=== PATIENT | male | born 1980 | race Caucasian/White ===

== ENCOUNTER 2017-12-01 05:38 | Emergency (ER) | payer SELFPAY ==
[2017-12-01] MEDS ORDERED: IPRATROPIUM/ALBUTEROL 0.5-2.5 MG/3 ML AMPUL NEB ONE ×2 (05:42→05:47)
[2017-12-01] MEDS ORDERED: PREDNISONE 20 MG TABLET PO ONE (05:47)
--- NOTE | 2017-12-01 05:51 | ER Document Report ---
ED Medical Screen (RME) - General Chief Complaint: Asthma Exacerbation Stated Complaint: TROUBLE BREATHING Time Seen by Provider: 12/01/17 05:47 Notes: 37-year-old male with a history of asthma, ran out of his asthma inhalers and nebulizer, report shortness of breath that started at 1 PM tonight. Occasional cough, no fever. Denies smoking. Using mist at home for self treatment. TRAVEL OUTSIDE OF THE [place] IN LAST 30 DAYS: No Physical Exam - Vital signs Vitals: Temp Pulse Resp BP Pulse Ox 98.0 F 111 H 24 H 133/91 H 94 12/01/17 05:42 12/01/17 05:42 12/01/17 05:42 12/01/17 05:42 12/01/17 05:42 - Respiratory Respiratory status: Tachypnea Breath sounds: Wheezing - Soft expiratory wheezes in the left lower lobe, otherwise clear lungs sounds bilaterally - Psychological Associated symptoms: Anxious Course - Re-evaluation Re-evalutation: Good air movement with very mild wheezing, patient is anxious, treating exacerbation - Vital Signs Vital signs: Temp Pulse Resp BP Pulse Ox 98.0 F 111 H 24 H 133/91 H 94 12/01/17 05:42 12/01/17 05:42 12/01/17 05:42 12/01/17 05:42 12/01/17 05:42
--- NOTE | 2017-12-01 06:14 | RADIOLOGY REPORT (SQ) ---
EXAM DESCRIPTION: CHEST SINGLE VIEW CLINICAL HISTORY: shortness of breath COMPARISON: None. FINDINGS: Single frontal view of the chest. The cardiomediastinal silhouette has normal size and contour. No consolidation, pneumothorax, or pleural effusion. No displaced rib fractures identified. Leads overlie the chest. Upper abdominal soft tissues are unremarkable. IMPRESSION: 1. No acute pulmonary process identified.
[2017-12-01 06:21] VITALS: BP 123/69
[2017-12-01] MEDS ORDERED: ALBUTEROL SULFATE HFA (90 MCG/PUFF) 8 GM MDI (1 MDI/ER DISP) IH PRN (06:47)
--- NOTE | 2017-12-01 06:47 | ER Document Report ---
ED General - General Chief Complaint: Asthma Exacerbation Stated Complaint: TROUBLE BREATHING Time Seen by Provider: 12/01/17 05:47 Mode of Arrival: Ambulatory Information source: Patient Notes: 37-year-old male history of hiatal hernia gastric reflux asthma presents with complaints of a cough worse at nighttime. Patient notes it feels like a tickle sensation in his throat and that the symptoms have been ongoing now for months. Patient notes intermittently he will have wheezing with it denies any DVT or PE risk at TRAVEL OUTSIDE OF THE [place] IN LAST 30 DAYS: No - HPI Onset: Other Onset/Duration: Sudden, Intermittent Quality of pain: No pain Severity: Mild Pain Level: Denies Associated symptoms: Shortness of breath Exacerbated by: Other - laying flat Relieved by: Other - calming himself down and breathing treatments Similar symptoms previously: Yes Recently seen / treated by doctor: No - Related Data Allergies/Adverse Reactions: No Known Allergies Allergy (Unverified 12/01/17 06:13) Past Medical History - Social History Smoking Status: Never Smoker Cigarette use (# per day): No Chew tobacco use (# tins/day): No Smoking Education Provided: No Frequency of alcohol use: None Drug Abuse: None Family History: Reviewed & Not Pertinent Patient has suicidal ideation: No Patient has homicidal ideation: No Pulmonary Medical History: Reports: Hx Asthma Renal/ Medical History: Denies: Hx Peritoneal Dialysis GI Medical History: Reports: Hx Gastroesophageal Reflux Disease Review of Systems - Review of Systems Notes: REVIEW OF SYSTEMS: CONSTITUTIONAL : Denies fever, chills, or sweats. Denies recent illness. EENT: Denies eye, ear, throat, or mouth pain or symptoms. Denies nasal or sinus congestion or discharge. Denies throat, tongue, or mouth swelling or difficulty swallowing. CARDIOVASCULAR: Denies chest pain. Denies palpitations or racing or irregular heart beat. Denies ankle edema. RESPIRATORY: Admits shortness of breath GASTROINTESTINAL: Admits to gastric reflux GENITOURINARY: Denies difficulty urinating, painful urination, burning, frequency, blood in urine, or discharge. MUSCULOSKELETAL: Denies back or neck pain or stiffness. Denies joint pain or swelling. SKIN: Denies rash, lesions or sores. HEMATOLOGIC : Denies easy bruising or bleeding. LYMPHATIC: Denies swollen, enlarged glands. NEUROLOGICAL: Denies confusion or altered mental status. Denies passing out or loss of consciousness. Denies dizziness or lightheadedness. Denies headache. Denies weakness or paralysis or loss of use of either side. Denies problems with gait or speech. Denies sensory loss, numbness, or tingling. Denies seizures. PSYCHIATRIC: Denies anxiety or stress. Denies depression, suicidal ideation, or homicidal ideation. ALL OTHER SYSTEMS REVIEWED AND NEGATIVE. Dictation was performed using [email or web address] voice recognition software PHYSICAL EXAMINATION: GENERAL: Well-appearing, well-nourished and in no acute distress. HEAD: Atraumatic, normocephalic. EYES: Pupils equal round and reactive to light, extraocular movements intact, sclera anicteric, conjunctiva are normal. ENT: Nares patent, oropharynx clear without exudates. Moist mucous membranes. NECK: Normal range of motion, supple without lymphadenopathy LUNGS: Breath sounds clear to auscultation bilaterally and equal. No wheezes rales or rhonchi. Patient was noted to have wheezing prior to breathing treatments and my evaluation HEART: Regular rate and rhythm without murmurs ABDOMEN: Soft, nontender, nondistended abdomen. No guarding, no rebound. No masses appreciated. Musculoskeletal: Normal range of motion, no pitting or edema. No cyanosis. NEUROLOGICAL: Cranial nerves grossly intact. Normal speech, normal gait. Normal sensory, motor exams PSYCH: Normal mood, normal affect. SKIN: Warm, Dry, normal turgor, no rashes or lesions noted. Physical Exam - Vital signs Vitals: Temp Pulse Resp BP Pulse Ox 98.0 F 111 H 24 H 133/91 H 94 12/01/17 05:42 12/01/17 05:42 12/01/17 05:42 12/01/17 05:42 12/01/17 05:42 Course - Re-evaluation Re-evalutation: 12/01/17 09:40 Patient's examination is quite benign, he was noted to be slightly tachycardic tachypneic prior to my evaluation but those symptoms seem to improve when he talked to him. His symptoms he states resolved with breathing treatment. Patient overall looks well is in no distress on reexamination, x-ray noted no acute abnormality, patient is already on gastric reflux medication will be given GI follow-up and surgeon for his hiatal hernia which I believe may be causing all his symptoms since they worsen when he lays flat After performing a Medical Screening Examination, I estimate there is LOW risk for ACUTE CORONARY SYNDROME, PULMONARY EMBOLI, RESPIRATORY FAILURE, SEPSIS OR MENINGITIS, thus I consider the discharge disposition reasonable. I have reevaluated this patient multiple times and no significant life threatening changes are noted. The patient and I have discussed the diagnosis and risks, and we agree with discharging home with close follow-up. We also discussed returning to the Emergency Department immediately if new or worsening symptoms occur. We have discussed the symptoms which are most concerning (e.g., changing or worsening pain, trouble swallowing or breathing, neck stiffness, fever) that necessitate immediate return. - Vital Signs Vital signs: Temp Pulse Resp BP Pulse Ox 98.0 F 111 H 15 123/69 97 12/01/17 05:42 12/01/17 05:42 12/01/17 06:01 12/01/17 06:01 12/01/17 06:01 - Diagnostic Test Radiology reviewed: Image reviewed - no acute abnormality , report given to patient, Reports reviewed Discharge - Discharge Clinical Impression: GERD (gastroesophageal reflux disease) Qualifiers: Esophagitis presence: with esophagitis Qualified Code(s): K21.0 - Gastro- esophageal reflux disease with esophagitis Asthma exacerbation Qualifiers: Asthma severity: mild Asthma persistence: intermittent Qualified Code(s): J45.21 - Mild intermittent asthma with (acute) exacerbation Condition: Stable Disposition: HOME, SELF-CARE Instructions: Asthma ([facility]) Prescriptions: Albuterol Sulfate [Albuterol Sulfate 2.5mg/3 mL] 1 vial IH Q4 PRN 30 Days vial PRN Reason: Referrals: JUANJO PERALTA MD [ACTIVE STAFF] - Follow up tomorrow DEYSI MINOR MD [ACTIVE STAFF] - Follow up tomorrow
== END 2017-12-01 06:53 | disposition home or self-care (01) ==
LOC: ER 05:38
DX: K21.0 Gastro-esophageal reflux disease with esophagitis (principal); J45.21 Mild intermittent asthma with (acute) exacerbation; R05 Cough; R06.02 Shortness of breath; R00.0 Tachycardia, unspecified
CPT/HCPCS: 94640; 99285; 71045; J7512; J3490; J7620

== ENCOUNTER 2018-01-08 13:05 | Emergency (ER) | payer SELFPAY ==
--- NOTE | 2018-01-08 13:23 | ER Document Report ---
ED Medical Screen (RME) - General Chief Complaint: Abdominal Pain Stated Complaint: STOMACH PAIN Time Seen by Provider: 01/08/18 13:14 Notes: RAPID MEDICAL EVALUATION DISCLOSURE I have seen this patient as part of a Rapid Medical Evaluation and, if applicable, placed any initially appropriate orders. The patient will be seen and fully evaluated, including a full history and physical exam, by a provider ( in Main ED or Fast Track) when a room becomes available. 37-year-old male here with complaints of right upper abdominal pain ongoing for the past 5 days (however points to his right lower chest wall). States that the pain is worse primarily with coughing but he has also noticed it with torso twisting/bending and right arm movement. 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 He denies shortness of breath but has had a dry cough for the past 2 months without fevers or chills. He denies presence in any heavily populated areas such as [employer] [place] or homeless shelters nor has he been around anyone with TB. Has tried Tylenol with minimal relief. No nausea vomiting dysuria hematuria frequency hesitancy. No prior history of PE/DVT. EXAM CTAB RRR No back TTP Minimal right lower anterior/lateral chest wall TTP NOTE Patient requests holding off on ED-administered medication TRAVEL OUTSIDE OF THE [place] IN LAST 30 DAYS: No - Related Data Allergies/Adverse Reactions: Penicillins Allergy (Verified 01/08/18 13:08) Past Medical History Pulmonary Medical History: Reports: Hx Asthma Renal/ Medical History: Denies: Hx Peritoneal Dialysis GI Medical History: Reports: Hx Gastroesophageal Reflux Disease Physical Exam - Vital signs Vitals: Temp Pulse Resp BP Pulse Ox 98.3 F 79 18 146/64 H 97 01/08/18 13:10 01/08/18 13:10 01/08/18 13:10 01/08/18 13:10 01/08/18 13:10 Course - Vital Signs Vital signs: Temp Pulse Resp BP Pulse Ox 98.3 F 79 18 146/64 H 97 01/08/18 13:10 01/08/18 13:10 01/08/18 13:10 01/08/18 13:10 01/08/18 13:10
[2018-01-08 13:52] LABS: APPEARANCE,URINE CLEAR; BILIRUBIN,URINE NEGATIVE (NEGATIVE); COLOR,URINE YELLOW; GLUCOSE, URINE NEGATIVE (NEGATIVE); KETONES,URINE NEGATIVE (NEGATIVE); LEUKOCYTE ESTERASE,URINE NEGATIVE (NEGATIVE); NITRITE,URINE NEGATIVE (NEGATIVE); PROTEIN,URINE NEGATIVE (NEGATIVE); URINE SPECIFIC GRAVITY 1.014; UROBILINOGEN,URINE NEGATIVE mg/dL (<2.0)
--- NOTE | 2018-01-08 13:59 | RADIOLOGY REPORT (SQ) ---
EXAM DESCRIPTION: CHEST 2 VIEWS COMPLETED DATE/TIME: 01/08/2018 1:46 pm REASON FOR STUDY: pain w coughing; eval ptx pna COMPARISON: None. EXAM PARAMETERS: NUMBER OF VIEWS: two views TECHNIQUE: Digital Frontal and Lateral radiographic views of the chest acquired. RADIATION DOSE: NA LIMITATIONS: none FINDINGS: LUNGS AND PLEURA: No opacities, masses or pneumothorax. No pleural effusion. MEDIASTINUM AND HILAR STRUCTURES: No masses or contour abnormalities. HEART AND VASCULAR STRUCTURES: Heart normal size. No evidence for failure. BONES: No acute findings. HARDWARE: None in the chest. OTHER: No other significant finding. IMPRESSION: NO ACUTE RADIOGRAPHIC FINDING IN THE CHEST. TECHNICAL DOCUMENTATION: JOB ID: [id number] [employer]- All Rights Reserved Reading location - IP/workstation name: [email or web address]
[2018-01-08 14:02] LABS: HEMATOCRIT 23.6 % (37.9-51.0); MEAN CORPUSCULAR HEMOGLOBIN 17.4 pg (27.0-33.4); MEAN CORPUSCULAR HGB CONC 29.6 g/dL (32.0-36.0); PLATELET COUNT 505 10^3/uL (150-450); RED BLOOD COUNT 4.02 10^6/uL (4.35-5.55); RED CELL DISTRIBUTION WIDTH 17.5 % (11.5-14.0); WHITE BLOOD COUNT 5.8 10^3/uL (4.0-10.5)
[2018-01-08 14:07] LABS: ALANINE AMINOTRANSFERASE 34 U/L (21-72); ALBUMIN 4.2 g/dL (3.5-5.0); ALKALINE PHOSPHATASE 84 U/L (38-126); ANION GAP 14 (5-19); ASPARTATE AMINO TRANSFERASE 38 U/L (17-59); BILIRUBIN,DIRECT 0.2 mg/dL (0.0-0.4); BILIRUBIN,TOTAL 0.2 mg/dL (0.2-1.3); BLOOD UREA NITROGEN 17 mg/dL (7-20); CALCIUM 9.8 mg/dL (8.4-10.2); CARBON DIOXIDE 27 mmol/L (22-30); CHLORIDE 102 mmol/L (98-107); GLUCOSE 76 mg/dL (75-110); LIPASE 105.4 U/L (23-300); POTASSIUM 4.5 mmol/L (3.6-5.0); TOTAL PROTEIN 7.9 g/dL (6.3-8.2)
[2018-01-08 14:13] LABS: MEAN CORPUSCULAR VOLUME 59 fl (80-97)
[2018-01-08 14:21] LABS: ABSOLUTE LYMPHOCYTES# (MANUAL) 1.7 10^3/uL (0.5-4.7); ABSOLUTE MONOCYTES # (MANUAL) 0.3 10^3/uL (0.1-1.4); ABSOLUTE NEUTROPHILS# (MANUAL) 3.3 10^3/uL (1.7-8.2); ANISOCYTOSIS 2+; BASOPHILS % (MANUAL) 2 % (0-2); EOSINOPHILS % (MANUAL) 6 % (0-6); HYPOCHROMASIA 1+; LYMPHOCYTES % (MANUAL) 29 % (13-45); MONOCYTES % (MANUAL) 6 % (3-13); OVALOCYTES 2+; PLATELET COMMENT INCREASED; POIKILOCYTOSIS 2+; POLYCHROMASIA 1+; SEGMENTED NEUTROPHILS % (MAN) 57 % (42-78); TOTAL CELLS COUNTED 100; TOXIC GRANULATION 1+
[2018-01-08] MEDS ORDERED: NORMAL SALINE 250 ML IV PRN (14:50)
[2018-01-08] MEDS ORDERED: CYCLOBENZAPRINE HCL 10 MG TABLET PO ONE (14:54)
[2018-01-08] MEDS ORDERED: ACETAMINOPHEN WITH CODEINE 120-12 MG/5 ML UDCUP PO ONE (14:54)
[2018-01-08 15:37] LABS: IRON(TIBC) 12.5 ug/dL (49-181)
[2018-01-08 15:46] LABS: ABSOLUTE RETICS # 0.088 10^6/uL (0.028-0.122); RETICULOCYTE COUNT (AUTO) 2.18 % (0.66-2.85)
[2018-01-08 16:12] LABS: FERRITIN 3.72 ng/mL (17.9-464.0)
--- NOTE | 2018-01-08 16:47 | RADIOLOGY REPORT (SQ) ---
EXAM DESCRIPTION: CTA CHEST COMPLETED DATE/TIME: 01/08/2018 4:19 pm REASON FOR STUDY: anemia, cough 2 months, sharp pain right side COMPARISON: None. TECHNIQUE: CT scan of the chest performed using helical scanning technique with dynamic intravenous contrast injection. Images reviewed with lung, soft tissue and bone windows. Reconstructed coronal and sagittal MPR images reviewed. Additional 3 dimensional post-processing performed to develop Maximal Intensity Projection images (OR P). All images stored on PACS. All CT scanners at this facility use dose modulation, iterative reconstruction, and/or weight based d osing when appropriate to reduce radiation dose to as low as reasonably achievable (ALARA). [facility]: Dose Right [facility]: CareDose [facility]: Dose Right [facility]: Teradose 4D [facility]: Only [place] CONTRAST TYPE AND DOSE: 71.2 mL Isovue 370 Contrast bolus optimized for the pulmonary arteries. Not diagnostic for the aorta. RENAL FUNCTION: None required. The patient is less than 50 years old. RADIATION DOSE: . LIMITATIONS: None. FINDINGS: LUNGS AND PLEURA: No masses, infiltrates, pneumothorax. No pleural effusions, calcificati ons. AORTA AND GREAT VESSELS: No aneurysm. Contrast bolus not optimized for the aorta. HEART: No pericardial effusion. No significant coronary artery calcifications. PULMONARY ARTERIES: No emboli visualized in the main pulmonary arteries or the segmental branches. HILAR AND MEDIASTINAL STRUCTURES: No identified masses or abnormal nodes. HARDWARE: None in the chest. UPPER ABDOMEN: See results under abdominal CT scan THYROID AND OTHER SOFT TISSUES: No masses. No adenopathy. BONES: No acute or significant finding. 3D MIPS: Confirm above findings. OTHER: Moderate size hiatal hernia is identified. IMPRESSION: No evidence for pulmonary embolic disease. No acute consolidations or pleural effusions are identified. Other findings as noted above. COMMENT: Quality ID # [id number]: Final reports with documentation of one or more dose reduction techniques (e.g., Automated exposure control, adjustment of the mA and/or kV according to patient size, use of iterative reconstruction technique) TECHNICAL DOCUMENTATION: JOB ID: [id number] [employer]- All Rights Reserved Reading location - IP/workstation name: [email or web address]
--- NOTE | 2018-01-08 17:00 | RADIOLOGY REPORT (SQ) ---
EXAM DESCRIPTION: CT ABD/PELVIS WITH IV ONLY COMPLETED DATE/TIME: 01/08/2018 4:19 pm REASON FOR STUDY: ruq pain, right sided pain, anemia acute COMPARISON: None. TECHNIQUE: CT scan of the abdomen and pelvis performed using helical scanning technique with dynamic intravenous contrast injection. No oral contrast. Images reviewed with lung, soft tissue, and bone windows. Reconstructed coronal and sagittal MPR images reviewed. Delayed images for evaluation of the urinary system also acquired. All images stored on PACS. All CT scanners at this facility use dose modulation, iterative reconstruction, and/or weight based d osing when appropriate to reduce radiation dose to as low as reasonably achievable (ALARA). [facility]: Dose Right [facility]: CareDose [facility]: Dose Right [facility]: Teradose 4D [facility]: [employer] CONTRAST TYPE AND DOSE: 95 mL Isovue 370 RENAL FUNCTION: None required. The patient is less than 50 years old. RADIATION DOSE: . LIMITATIONS: None. FINDINGS: LOWER CHEST: See results under chest CT scan LIVER: Normal size. No masses. No dilated ducts. SPLEEN: Normal size. No focal lesions. PANCREAS: No masses. No significant calcifications. No adjacent inflammation or peripancreatic fluid collections. Pancreatic duct not dilated. GALLBLADDER: No identified stones by CT criteria. No inflammatory changes to suggest cholecystitis. ADRENAL GLANDS: No significant masses or asymmetry. RIGHT KIDNEY AND URETER: No solid masses. No significant calcifications. No hydronephrosis or hyd roureter. LEFT KIDNEY AND URETER: No solid masses. No significant calcifications. No hydronephrosis or hydr oureter. AORTA AND VESSELS: No aneurysm. No dissection. Renal arteries, SMA, celiac without stenosis. RETROPERITONEUM: No retroperitoneal adenopathy, hemorrhage or masses. BOWEL AND PERITONEAL CAVITY: No masses or inflammatory changes. No free fluid or peritoneal masses. APPENDIX: Normal. PELVIS: No mass. No free fluid. Normal bladder. ABDOMINAL WALL: No masses. No hernias. BONES: No significant or acute findings. OTHER: No other significant finding. IMPRESSION: NO SIGNIFICANT OR ACUTE FINDING IN THE ABDOMEN OR PELVIS ON CT SCAN WITH IV CONTRAST. TECHNICAL DOCUMENTATION: JOB ID: [id number] Quality ID # [id number]: Final reports with documentation of one or more dose reduction techniques (e.g., Au tomated exposure control, adjustment of the mA and/or kV according to patient size, use of iterative reconstruction technique) 2010 [employer]- All Rights Reserved Reading location - IP/workstation name: [email or web address]
[2018-01-08] MEDS ORDERED: IRON POLYSACCHARIDES COMPLEX 150 MG CAPSULE PO ONE (17:31)
--- NOTE | 2018-01-08 18:17 | ER Document Report ---
ED GI/ - General Chief Complaint: Abdominal Pain Stated Complaint: STOMACH PAIN Time Seen by Provider: 01/08/18 13:14 Mode of Arrival: Ambulatory Information source: Patient Notes: Patient is a 37-year-old male who presents to the ER today for 2 months of coughing, with some intermittent wheezing as he does have asthma. Patient does take albuterol inhaler when he feels he is wheezing which does help, as recently as yesterday. Patient denies any fevers or chills. He admits that yesterday he started to get some right lower chest pain with deep breathing and coughing, worse with movement. Patient denies any nausea, vomiting, diarrhea. Patient denies any blood in his cough. He states that it is dry, nonproductive and worse after he has been asleep for a couple of hours. He does take Benadryl before bed every night. He denies any injury. TRAVEL OUTSIDE OF THE [place] IN LAST 30 DAYS: No - Related Data Allergies/Adverse Reactions: Penicillins Allergy (Verified 01/08/18 13:08) Past Medical History - General Information source: Patient - Social History Smoking Status: Never Smoker Chew tobacco use (# tins/day): No Frequency of alcohol use: None Drug Abuse: None Family History: Reviewed & Not Pertinent Patient has suicidal ideation: No Patient has homicidal ideation: No Pulmonary Medical History: Reports: Hx Asthma Renal/ Medical History: Denies: Hx Peritoneal Dialysis GI Medical History: Reports: Hx Gastroesophageal Reflux Disease Past Surgical History: Reports: Hx Orthopedic Surgery, Hx Testicular Surgery - [place] Review of Systems - Review of Systems Constitutional: No symptoms reported EENT: No symptoms reported Cardiovascular: No symptoms reported Respiratory: See HPI Gastrointestinal: No symptoms reported Genitourinary: No symptoms reported Male Genitourinary: No symptoms reported Musculoskeletal: See HPI Skin: No symptoms reported Hematologic/Lymphatic: No symptoms reported Neurological/Psychological: No symptoms reported Physical Exam - Vital signs Vitals: Temp Pulse Resp BP Pulse Ox 98.3 F 79 18 146/64 H 97 01/08/18 13:10 01/08/18 13:10 01/08/18 13:10 01/08/18 13:10 01/08/18 13:10 - Notes Notes: PHYSICAL EXAMINATION: GENERAL: Pale, uncomfortable appearing, but in no acute distress. HEAD: Atraumatic, normocephalic. EYES: Pupils equal round and reactive to light, extraocular movements intact, sclera anicteric, conjunctiva are normal. ENT: ear canals without erythema or foreign body, TMs pearly alexandre with good bony landmarks, nares patent, postnasal drip noted, oropharynx clear without exudates. Moist mucous membranes. Airway patent NECK: Normal range of motion, supple without lymphadenopathy LUNGS: tender to right lower chest wall, Dry cough, otherwise CTAB and equal. No wheezes rales or rhonchi. HEART: Regular rate and rhythm without murmurs ABDOMEN: Soft, no tenderness. No guarding, no rebound BACK: no vertebral tenderness, normal ROM rectal: pt declined GI/: no CVA tenderness EXTREMITIES: Normal range of motion, no pitting edema. No cyanosis. NEUROLOGICAL: Cranial nerves grossly intact. Normal sensory/motor exams. PSYCH: Normal mood, normal affect. SKIN: Warm, Dry, normal turgor, no rashes or lesions noted Course - Re-evaluation Re-evalutation: 01/08/18 18:28 Hemoglobin is 7.0, hematocrit of 23.6, patient has never been told he was anemic before. He has not had blood work in over a year. He has a history of testicular cancer but does not have an oncologist here in the area yet as he is just moved here within the year. White blood cell count is normal, chest x-ray negative for any acute pathology, CAT scan of the chest and abdomen pelvis was ordered which did not show any acute pathology or masses, and evidence of metastatic disease. Iron labs were ordered and iron is low with a high normal TIBC. Dr. Sandoval, oncologist/executive producer was consulted on this case and wants to see him in her office at 2 PM tomorrow. Patient states that he can make that appointment. Dr. Sandoval would like for me to start him on Niferex iron and give him 1 unit of packed red blood cells here in the emergency department. I will also provide him with Zyrtec for what appears to be postnasal drip causing a dry cough which worsens overnight and provide him with a muscle relaxer for what seems to be musculoskeletal pain from his 2 months of coughing. Patient declined rectal exam multiple times today. Dr. Sandoval says that she will further evaluate for GI bleed starting tomorrow in the office. - Vital Signs Vital signs: Temp Pulse Resp BP Pulse Ox 98.6 F 78 17 126/67 H 97 01/08/18 18:01 01/08/18 18:00 01/08/18 18:01 01/08/18 18:01 01/08/18 18:01 - Laboratory Result Diagrams: 01/08/18 13:31 01/08/18 13:31 Laboratory results interpreted by me: 01/08/18 01/08/18 01/08/18 13:31 13:31 15:33 RBC 4.02 L Hgb 7.0 L Hct 23.6 L MCV 59 L MCH 17.4 L MCHC 29.6 L RDW 17.5 H Plt Count 505 H Iron 12.5 L Ferritin 3.72 L Crossmatch See Detail Discharge - Discharge Clinical Impression: Persistent dry cough, Right-sided chest wall pain Iron deficiency anemia Qualifiers: Iron deficiency anemia type: unspecified iron deficiency Qualified Code(s): D50.9 - Iron deficiency anemia, unspecified Condition: Stable Disposition: HOME, SELF-CARE Instructions: Anemia, Iron Deficiency ([facility]), Chest Wall Pain ([facility]) Additional Instructions: Return immediately for any new or worsening symptoms. Follow up with primary care provider, call tomorrow to make followup appointment. Dr. Sandoval would like to see you at 2 PM Sunday afternoon. Please do not miss this appointment. Please start taking the Niferex tablets 1 time every day. Prescriptions: Cetirizine HCl [Zyrtec 10 mg Tablet] 1 tab PO DAILY #30 tablet Iron Ag,Ps/C/Fa6/B12/Zn/SA/Sto [Niferex Tablet] 1 each PO DAILY #30 tablet Methocarbamol [Robaxin 500 mg Tablet] 500 mg PO QID PRN #40 tablet PRN Reason: Forms: Return to Work Referrals: MADDIE SANDOVAL MD [ACTIVE STAFF] - Follow up as needed
[2018-01-08 21:41] VITALS: BP 121/57
[2018-01-09 10:26] LABS: PATH REVIEW PATHOLOGIST REVIEWED
== END 2018-01-08 21:10 | disposition home or self-care (01) ==
LOC: ER 13:05
DX: R10.11 Right upper quadrant pain (principal); D50.9 Iron deficiency anemia, unspecified; R07.89 Other chest pain; R05 Cough; Z88.0 Allergy status to penicillin
CPT/HCPCS: 99284; 86900; 86901; 36415; 36430; 86850; 82607; 82728; 82746; 83540; 83550; 83690; 85025; 85045; 80053; 81001; 86920; 71046; 71275; 74177; P9016; J3490

== ENCOUNTER 2018-02-22 21:41 | Emergency (ER) | payer SELFPAY ==
[2018-02-23] MEDS ORDERED: CEPHALEXIN 500 MG CAPSULE PO ONE (00:55)
[2018-02-23] MEDS ORDERED: SULFAMETHOXAZOLE/TRIMETHOPRIM 800-160 MG TABLET PO ONE (00:55)
--- NOTE | 2018-02-23 01:01 | ER Document Report ---
ED Skin Rash/Insect Bite/Abscs - General Chief Complaint: Insect Bite Stated Complaint: SWOLLEN ANKLE Time Seen by Provider: 02/22/18 23:57 Mode of Arrival: Ambulatory Information source: Patient TRAVEL OUTSIDE OF THE [place] IN LAST 30 DAYS: No - HPI Patient complains to provider of: Skin rash/lesion Notes: Patient is here with complaints of possible insect bite that is infected. He states that he was scratching the anterior ankle of his left leg a few days ago while at work. States that it turned into a pustule which he was able to pop. States that now he noticed that it has become more swollen and he now has some spreading redness. No fever. No numbness, tingling, weakness. He denies any immunosuppression. No diabetes. No chest pain shortness of breath. No nausea , vomiting, diarrhea. He has some mild pain when you touch the area. He declined wanting anything for pain at this time. He denies any injury. He denies any other complaints at this time. - Related Data Allergies/Adverse Reactions: Penicillins Allergy (Verified 01/08/18 13:08) Past Medical History - Social History Smoking Status: Never Smoker Chew tobacco use (# tins/day): No Frequency of alcohol use: None Drug Abuse: None Family History: Reviewed & Not Pertinent Patient has suicidal ideation: No Patient has homicidal ideation: No Pulmonary Medical History: Reports: Hx Asthma Renal/ Medical History: Denies: Hx Peritoneal Dialysis GI Medical History: Reports: Hx Gastroesophageal Reflux Disease Past Surgical History: Reports: Hx Orthopedic Surgery, Hx Testicular Surgery - [place] Review of Systems - Review of Systems -: Yes All other systems reviewed and negative Physical Exam - Vital signs Vitals: Temp Pulse Resp BP Pulse Ox 97.9 F 80 18 134/72 H 96 02/22/18 21:55 02/22/18 21:55 02/22/18 21:55 02/22/18 21:55 02/22/18 21:55 - Notes Notes: GENERAL: alert, cooperative, nontoxic, no distress. HEAD: normocephalic, atraumatic EYES: conjunctiva pink without discharge, no external redness or swelling. EARS: no external swelling, no external redness NOSE: atraumatic, no external swelling MOUTH/THROAT: mucous membranes moist and pink NECK: soft, supple, full range of motion, no meningismus. CHEST: no distress, lungs clear and equal throughout. No wheezing, rales, rhonchi. CARDIAC: regular rate and rhythm, no murmur, normal capillary refill, normal pulses. BACK: full range of motion, no CVA tenderness. EXTREMITIES: full range of motion of all extremities. No redness, no swelling. NEURO: alert and oriented 3, no focal deficits, full range of motion of all extremities. PYSCH: appropriate mood, affect. Patient is cooperative. SKIN: pink, warm, dry, no rash. Small pustule to the left anterior ankle. Was able to unroofed this with an 18-gauge and got a small amount of purulent drainage. Patient has some mild surrounding erythema to the anterior aspect of the ankle. Is not circumferential. There is no redness to the foot and no redness streaking up the leg. Normal pulse and sensation distally. Minimal tenderness to palpation. Course - Re-evaluation Re-evalutation: 02/23/18 00:57 Patient is nontoxic-appearing with stable vitals. The patient is here with complaints of possible infection of the left anterior ankle. He states that he was scratching his left anterior ankle few days ago at work and then noticed a small pustule form. He states that now he noticed some redness to the anterior ankle. On exam he has this very small pustule which was able to unroofed with an 18-gauge needle. I was able to express a small amount of purulent drainage. There is no deep or large abscess noted. Patient has some mild cellulitis around this area. He has full range of motion of the ankle joint with no signs of ankles infection. Normal pulse and sensation. No lymphangitic streaking up the leg. He is afebrile and has a normal functioning immune system. This point he has a mild early cellulitis. Patient was given Bactrim and Keflex here in emergency department. He will be discharged home with a prescription for Bactrim and Keflex. He declined anything for pain. He is instructed to apply warm compresses to sore area. Follow-up if not improved in the next 2 days, sooner for worsening pain, fever, redness, drainage, any further concerns. The patient is noted to have elevated blood pressure during today's emergency department visit. The patient was informed of this finding. The patient was instructed that this may be related to pre-hypertension and requires further evaluation with a primary care provider. The patient has no hypertensive symptoms at this time. The patient's emergency department workup and current diagnosis were explained to the patient and or family. Follow-up instructions were provided. Medications if prescribed were discussed. Instructions for when to return to the emergency department including specific worrisome symptoms were discussed with the patient and/or family. - Vital Signs Vital signs: Temp Pulse Resp BP Pulse Ox 97.9 F 80 18 134/72 H 96 02/22/18 21:55 02/22/18 21:55 02/22/18 21:55 02/22/18 21:55 02/22/18 21:55 Procedures - Incision and Drainage left anterior ankle Type: Simple I&D procedure: Shurclens applied, Sterile dressing applied Incision Method: Incision made with needle Amount/type of drainage: small purulent Discharge - Discharge Clinical Impression: Cellulitis of left ankle Condition: Stable Disposition: HOME, SELF-CARE Instructions: Cellulitis ([facility]) Additional Instructions: Take medication as prescribed. Apply warm compresses to sore area. Take Tylenol Motrin as needed for pain. Follow-up if not better in 2 days, sooner for worsening pain, fever, redness, numbness, tingling, weakness, any further concerns. Your blood pressure was elevated during today's visit. Have this rechecked with your doctor. Prescriptions: Cephalexin Monohydrate [Keflex 500 mg Capsule] 500 mg PO Q6H #40 capsule Sulfamethoxazole/Trimethoprim [Bactrim Ds Tablet] 1 each PO BID #20 tablet Forms: Elevated Blood Pressure, Smoking Cessation Education Referrals: [facility] [Provider Group] - Follow up as needed
[2018-02-23 01:21] VITALS: BP 127/79
== END 2018-02-23 01:25 | disposition home or self-care (01) ==
LOC: ER 21:41
PROC: 0H9NXZZ Drainage of Left Foot Skin, External Approach (ICD-10-PCS; principal; 2018-02-22)
DX: L03.116 Cellulitis of left lower limb (principal); Z88.0 Allergy status to penicillin
CPT/HCPCS: 99281

== ENCOUNTER 2018-04-23 11:56 | Day surgery (SDC) | payer MEDICAID ==
[~2018-04-23 11:56] MED LIST: DIPHENHYDRAMINE HCL 50 MG/ML VIAL ONE; EPINEPHRINE INJ 1 MG/10 ML DISP.SYRIN ONE; FLUMAZENIL INJ 0.5 MG/5 ML VIAL ONE; GLUCAGON,HUMAN RECOMB 1 MG INJ ONE; NALOXONE HCL INJ/PF 0.4 MG/1 ML SDV ONE; ONDANSETRON HCL INJ/PF 4 MG/2 ML SDV ONE
[2018-04-23] MEDS: MIDAZOLAM 2 MG/2 ML INJ ONE ×3 (12:49→13:05)
[2018-04-23] MEDS: FENTANYL CITRATE INJ/PF 100 MCG/2 ML AMPUL ONE ×3 (12:51→13:00)
--- NOTE | 2018-04-23 13:29 | Operative Report ---
Operative Report DATE OF SURGERY: 04/23/18 Operative Report: The risks, benefits and alternatives of the procedure including the risks of bleeding, perforation requiring surgery are explained to the patient in detail and informed consent is obtained. Patient was taken back to the endoscopy suite and placed in the left, lateral decubital position. Timeout was called. Conscious sedation medication is provided. Rectal examination is done which did not reveal any masses, tears or fissures. An Olympus videoscope was inserted into the patient's rectum. The scope was then carefully advanced all the way to the cecum. The cecum was identified by the usual anatomical landmarks including the ileocecal valve as well as the appendiceal office. Photodocumentation is obtained. The scope was then sequentially pulled back via the rest segments of the colon including the ascending colon, hepatic flexure, transverse colon, splenic flexure, descending colon and finally into the rectosigmoid portions of the colon. Retroflexion maneuvers performed. The risks benefits and alternatives of the procedure explained to the patient in detail and informed consent is obtained.A GIF Olympus video scope was inserted into the patient's mouth and hypopharynx, the esophagus is identified intubated and insufflated, the scope was then advanced through the esophagus stomach and duodenum, retroflexion maneuver is done, the esophagus stomach and first and second portions of the duodenum examined PREOPERATIVE DIAGNOSIS: Iron deficiency anemia POSTOPERATIVE DIAGNOSIS: Esophageal ulcers and some esophageal rings noted suggestive of eosinophilic esophagitis status post biopsy. Gastritis status post biopsy rule out Helicobacter pylori. Mild scalloping in the duodenal mucosa suggestive of celiac sprue; biopsies obtained. Nodular terminal ileitis status post biopsy rule out Crohn's disease OPERATION: Colonoscopy with biopsy. EGD with biopsy SURGEON: TASHA AGEE ANESTHESIA: Moderate Sedation - 5 mg of Versed, 125 mcg of fentanyl. Conscious sedation monitoring time 30 minutes. TISSUE REMOVED OR ALTERED: As noted above. COMPLICATIONS: None. ESTIMATED BLOOD LOSS: None. INTRAOPERATIVE FINDINGS: As noted above. PROCEDURE: Patient tolerated the procedure well. No immediate postprocedure complications are noted. Patient discharged in good condition. Discharge date 04/23/2018. Discharge diet: Regular. Discharge activity: Regular. 2-3 week follow-up to discuss findings. Wait on the pathology. Patient is instructed to call the office or proceed to the emergency room should there be any further problems or questions.
[2018-04-23] MEDS ORDERED: ACETAMINOPHEN 325 MG TABLET ONE (13:58)
[2018-04-23] MEDS ORDERED: SIMETHICONE 80 MG TAB.CHEW ONE (13:58)
[2018-04-23] MEDS ORDERED: ONDANSETRON HCL INJ/PF 4 MG/2 ML SDV ONE (14:02)
[2018-04-23 15:05] VITALS: BP 124/62
== END 2018-04-23 15:30 | disposition home or self-care (01) ==
LOC: END 11:56
PROVIDERS: ATTEND Internal Medicine Gastroenterology
DX: K22.10 Ulcer of esophagus without bleeding (principal); K20.9 Esophagitis, unspecified; K29.70 Gastritis, unspecified, without bleeding; K29.80 Duodenitis without bleeding; K22.2 Esophageal obstruction; K52.9 Noninfective gastroenteritis and colitis, unspecified; D50.9 Iron deficiency anemia, unspecified; Z88.0 Allergy status to penicillin
CPT/HCPCS: 43239; 45380; 88305 ×2; J3490; J2250; J3010; J2405; J0171; J1200; J1610; J2310

== ENCOUNTER 2018-05-04 02:40 | Emergency (ER) | payer MEDICAID ==
[2018-05-04] MEDS ORDERED: METHYLPREDNISOLONE INJ 125 MG/2 ML SDV IV ONE (03:54)
[2018-05-04] MEDS ORDERED: NORMAL SALINE 1000 ML 1,000 ML IV ONE (03:54)
[2018-05-04] MEDS ORDERED: IPRATROPIUM/ALBUTEROL 0.5-2.5 MG/3 ML AMPUL NEB ONE (03:54)
[2018-05-04] MEDS ORDERED: MAG HYDROX/AL HYDROX/SIMETH SUSP 30 ML UDCUP PO ONE (03:58)
[2018-05-04] MEDS ORDERED: LIDOCAINE 2% VISCOUS SOLN 20 ML UDCUP PO ONE (03:58)
[2018-05-04] MEDS ORDERED: METOCLOPRAMIDE HCL ORAL SOLN 10 MG/10 ML UDCUP PO ONE (03:58)
--- NOTE | 2018-05-04 03:59 | ER Document Report ---
ED Respiratory Problem - General Chief Complaint: Breathing Difficulty Stated Complaint: POSSIBLE ASTHMA ATTACK Time Seen by Provider: 05/04/18 03:45 Notes: Patient is a 37-year-old male with a history of asthma that comes to the emergency department for chief complaint of difficulty breathing, wheezing, he states that he started feeling sick during the day where he started getting congestion, sore throat, cough. He also states he has been having heartburn today. He denies any particular chest pain, denies fever, denies vomiting. He states that he coughed up some reddish material earlier although he did have pasta earlier. He has not coughed up any reddish sputum since. Denies epistaxis. Denies smoking. Comes by EMS, given 1 DuoNeb treatment in route. TRAVEL OUTSIDE OF THE [place] IN LAST 30 DAYS: No - Related Data Allergies/Adverse Reactions: Penicillins Allergy (Unknown, Verified 04/23/18 12:00) Anaphylaxis Past Medical History - General Information source: Patient - Social History Smoking Status: Never Smoker Frequency of alcohol use: None Drug Abuse: None Lives with: Family Family History: Reviewed & Not Pertinent - Past Medical History Cardiac Medical History: Denies: Hx Coronary Artery Disease, Hx Heart Attack, Hx Hypertension Pulmonary Medical History: Reports: Hx Asthma Denies: Hx Bronchitis, Hx COPD, Hx Pneumonia Neurological Medical History: Denies: Hx Cerebrovascular Accident, Hx Seizures Renal/ Medical History: Denies: Hx Peritoneal Dialysis GI Medical History: Reports: Hx Gastroesophageal Reflux Disease Musculoskeletal Medical History: Denies Hx Arthritis Past Surgical History: Reports: Hx Orthopedic Surgery, Hx Testicular Surgery - [place] - Immunizations Hx Diphtheria, Pertussis, Tetanus Vaccination: Yes Review of Systems - Review of Systems Constitutional: No symptoms reported EENT: See HPI Cardiovascular: No symptoms reported Respiratory: See HPI Gastrointestinal: No symptoms reported Genitourinary: No symptoms reported Male Genitourinary: No symptoms reported Musculoskeletal: No symptoms reported Skin: No symptoms reported Hematologic/Lymphatic: No symptoms reported Neurological/Psychological: No symptoms reported Physical Exam - Vital signs Vitals: Temp Pulse Resp BP Pulse Ox 97.3 F 97 20 141/73 H 93 05/04/18 02:57 05/04/18 02:57 05/04/18 02:57 05/04/18 02:57 05/04/18 02:57 - Notes Notes: GENERAL: Alert, interacts well. No acute distress. HEAD: Normocephalic, atraumatic. EYES: Pupils equal, round, and reactive to light. Extraocular movements intact. ENT: Oral mucosa moist, tongue midline. Minimal erythema of the posterior pharynx. Congested nasal passages and sinus congestion. No epistaxis noted. NECK: Full range of motion. Supple. Trachea midline. LUNGS: Expiratory wheezes and decreased breath sounds bilaterally. This is mild. No tachypnea, no respiratory distress. Unremarkable otherwise. HEART: Regular rate and rhythm. No murmur ABDOMEN: Soft, non-tender. Non-distended. Bowel sounds present in all 4 quadrants. EXTREMITIES: Moves all 4 extremities spontaneously. No edema, normal radial and dorsalis pedis pulses bilaterally. No cyanosis. BACK: no cervical, thoracic, lumbar midline tenderness. No saddle anesthesia, normal distal neurovascular exam. NEUROLOGICAL: Alert and oriented x3. Normal speech. [cranial nerves II through XII grossly intact]. PSYCH: Normal affect, normal mood. SKIN: Warm, dry, normal turgor. No rashes or lesions noted. Course - Re-evaluation Re-evalutation: Patient was coughing episodes, expiratory wheezes on exam, congestion of the paranasal sinuses. He states that he coughed up some blood although this was after eating pasta, did not cough up blood since, has no epistaxis noted, no tachycardia, he does not smoke, presentation is not very suggestive of pulmonary embolism. Suspect this was either from posterior nasal bleeding, bronchitis, I also do not suspect tuberculosis based on his lack of travel, cold symptoms, and unremarkable chest x-ray. Presentation is consistent with upper respiratory infection, asthma. Patient with complete resolution of his symptoms on my reevaluation except for mild congestion. He states he feels much improved. Provided with inhaler, spacer, medications, discussed follow-up , discussed return precautions, patient states satisfaction and agreement. - Vital Signs Vital signs: Temp Pulse Resp BP Pulse Ox 98.0 F 85 20 141/58 H 96 05/04/18 05:41 05/04/18 05:41 05/04/18 02:57 05/04/18 05:41 05/04/18 05:41 Discharge - Discharge Clinical Impression: Wheezing, Hemoptysis Asthma exacerbation Qualifiers: Asthma severity: unspecified severity Asthma persistence: unspecified Qualified Code(s): J45.901 - Unspecified asthma with (acute) exacerbation Upper respiratory infection Qualifiers: URI type: unspecified URI Qualified Code(s): J06.9 - Acute upper respiratory infection, unspecified Condition: Good Disposition: HOME, SELF-CARE Additional Instructions: Your chest x-ray does not show any concerning abnormality. Your examination is consistent with upper respiratory viral infection and asthma exacerbation. Take prednisone as prescribed, albuterol if needed. Drink plenty fluids and rest. He can take [id number] medications in addition to this. Follow-up with primary care for additional evaluation and management. Return if you worsen including spiking fever, difficulty breathing, etc. Prescriptions: Albuterol Sulfate [Proair HFA Inhalation Aerosol 8.5 gm MDI] 2 puff IH Q4H PRN # 1 mdi PRN Reason: Prednisone 60 mg PO DAILY #15 tablet Forms: Return to Work
--- NOTE | 2018-05-04 04:30 | RADIOLOGY REPORT (SQ) ---
EXAM DESCRIPTION: XR CHEST 2 VIEWS COMPLETED DATE/TME: 05/04/2018 03:54 CLINICAL HISTORY: 37 years Male, shortness of breath, coughed up blood COMPARISON: None. FINDINGS: Adequate lung volume, clear parenchyma, normal cardiac silhouette, and intact bony thorax. IMPRESSION: No acute cardiopulmonary findings.
[2018-05-04] MEDS ORDERED: ALBUTEROL SULFATE HFA (90 MCG/PUFF) 8 GM MDI (1 MDI/ER DISP) IH ONE (05:24)
[2018-05-04 05:43] VITALS: BP 141/58
== END 2018-05-04 05:49 | disposition home or self-care (01) ==
LOC: ER 02:40
DX: J45.901 Unspecified asthma with (acute) exacerbation (principal); J06.9 Acute upper respiratory infection, unspecified; R04.2 Hemoptysis; J02.9 Acute pharyngitis, unspecified; R12 Heartburn; R09.81 Nasal congestion; Z87.892 Personal history of anaphylaxis; Z88.0 Allergy status to penicillin
CPT/HCPCS: 94640; 99285; 96361; 96374; 71046; J3490 ×4; J2930; J7030; J7620

== ENCOUNTER 2018-10-12 10:32 | Emergency (ER) | payer MEDICAID ==
[2018-10-12] MEDS ORDERED: PANTOPRAZOLE SODIUM 40 MG VIAL IV ONE (11:00)
--- NOTE | 2018-10-12 11:01 | ER Document Report ---
ED Medical Screen (RME) - General Chief Complaint: Abdominal Pain Stated Complaint: ABDOMINAL PAIN Time Seen by Provider: 10/12/18 10:57 Mode of Arrival: Ambulatory Information source: Patient Notes: This is a 38-year-old man who presents to the emergency room with a one-week history of decreased p.o. intake, generalized weakness, sharp pain precipitated by eating foods. Patient does have a history of iron deficiency anemia requiring iron infusions (Dr. Medeiros), history of EGD showing esophageal ulcers, ring gastritis (Dr. Gregg in December 2017). He is currently on no medicines. Denies obvious blood in stool. TRAVEL OUTSIDE OF THE [place] IN LAST 30 DAYS: No - Related Data Allergies/Adverse Reactions: Penicillins Allergy (Unknown, Verified 10/12/18 10:34) Anaphylaxis Past Medical History - Social History Chew tobacco use (# tins/day): No Frequency of alcohol use: None Drug Abuse: None - Past Medical History Cardiac Medical History: Denies: Hx Coronary Artery Disease, Hx Heart Attack, Hx Hypertension Pulmonary Medical History: Reports: Hx Asthma Denies: Hx Bronchitis, Hx COPD, Hx Pneumonia Neurological Medical History: Denies: Hx Cerebrovascular Accident, Hx Seizures Renal/ Medical History: Denies: Hx Peritoneal Dialysis GI Medical History: Reports: Hx Gastroesophageal Reflux Disease, Hx Hiatal Hernia Musculoskeltal Medical History: Denies Hx Arthritis Past Surgical History: Reports: Hx Orthopedic Surgery, Hx Testicular Surgery - [place] - Immunizations Hx Diphtheria, Pertussis, Tetanus Vaccination: Yes Physical Exam - Vital signs Vitals: Temp Pulse Resp BP Pulse Ox 99.1 F 95 16 170/66 H 96 10/12/18 10:43 10/12/18 10:43 10/12/18 10:43 10/12/18 10:43 10/12/18 10:43 Course - Vital Signs Vital signs: Temp Pulse Resp BP Pulse Ox 99.1 F 95 16 170/66 H 96 10/12/18 10:43 10/12/18 10:43 10/12/18 10:43 10/12/18 10:43 10/12/18 10:43
[2018-10-12] MEDS: RINGERS SOLUTION,LACTATED 1,000 ML IV PRN ×2 (11:16→11:32)
[2018-10-12 11:59] LABS: HEMATOCRIT 32.6 % (37.9-51.0); HEMOGLOBIN 10.2 g/dL (13.5-17.0); MEAN CORPUSCULAR HEMOGLOBIN 20.1 pg (27.0-33.4); MEAN CORPUSCULAR HGB CONC 31.3 g/dL (32.0-36.0); PLATELET COUNT 356 10^3/uL (150-450); RED BLOOD COUNT 5.09 10^6/uL (4.35-5.55); RED CELL DISTRIBUTION WIDTH 16.9 % (11.5-14.0); WHITE BLOOD COUNT 4.8 10^3/uL (4.0-10.5)
[2018-10-12 12:10] LABS: ALANINE AMINOTRANSFERASE 54 U/L (21-72); ALBUMIN 3.9 g/dL (3.5-5.0); ALKALINE PHOSPHATASE 98 U/L (38-126); ANION GAP 11 (5-19); ASPARTATE AMINO TRANSFERASE 59 U/L (17-59); BILIRUBIN,DIRECT 0.1 mg/dL (0.0-0.4); BILIRUBIN,TOTAL 0.4 mg/dL (0.2-1.3); BLOOD UREA NITROGEN 13 mg/dL (7-20); CALCIUM 8.8 mg/dL (8.4-10.2); CARBON DIOXIDE 27 mmol/L (22-30); CHLORIDE 99 mmol/L (98-107); GLUCOSE 119 mg/dL (75-110); LIPASE 144.4 U/L (23-300); POTASSIUM 4.1 mmol/L (3.6-5.0); SODIUM 136.9 mmol/L (137-145); TOTAL PROTEIN 6.9 g/dL (6.3-8.2)
[2018-10-12 12:18] LABS: ABSOLUTE LYMPHOCYTES# (MANUAL) 3.1 10^3/uL (0.5-4.7); ABSOLUTE MONOCYTES # (MANUAL) 0.1 10^3/uL (0.1-1.4); ABSOLUTE NEUTROPHILS# (MANUAL) 1.5 10^3/uL (1.7-8.2); BASOPHILS % (MANUAL) 1 % (0-2); EOSINOPHILS % (MANUAL) 0 % (0-6); LYMPHOCYTES % (MANUAL) 63 % (13-45); MONOCYTES % (MANUAL) 3 % (3-13); SEGMENTED NEUTROPHILS % (MAN) 32 % (42-78); TOTAL CELLS COUNTED 100
[2018-10-12 12:20] LABS: ANISOCYTOSIS 1+; HYPOCHROMASIA 3+; OVALOCYTES 2+; PLATELET CLUMPS PRESENT; PLATELET COMMENT ADEQUATE; PLATELET LARGE PRESENT; POIKILOCYTOSIS 2+
[2018-10-12 12:21] LABS: MEAN CORPUSCULAR VOLUME 64 fl (80-97)
--- NOTE | 2018-10-12 12:34 | ER Document Report ---
ED GI/ - General Chief Complaint: Abdominal Pain Stated Complaint: ABDOMINAL PAIN Time Seen by Provider: 10/12/18 10:57 Mode of Arrival: Ambulatory Information source: Patient Notes: Patient is a 38-year-old male who presents the emergency department with 6-day history of abdominal pain. Patient reports history of GERD, anemia, peptic ulcers and polyps. Patient reports he is seen by Dr. Castillo who has already completed a colonoscopy. Patient is pending an endoscopy for Sunday. He s tates that over the last 6 days he has had sharp stabbing pains throughout his abdomen and epigastric area. He reports no fevers, nausea, vomiting or diarrhea. He states he has not eaten as every time he tries eating he gets severe sharp stabbing pains. TRAVEL OUTSIDE OF THE [place] IN LAST 30 DAYS: No - Related Data Allergies/Adverse Reactions: Penicillins Allergy (Unknown, Verified 10/12/18 10:34) Anaphylaxis Past Medical History - General Information source: Patient - Social History Smoking Status: Never Smoker Chew tobacco use (# tins/day): No Frequency of alcohol use: None Drug Abuse: None Family History: Reviewed & Not Pertinent Patient has suicidal ideation: No Patient has homicidal ideation: No - Past Medical History Cardiac Medical History: Denies: Hx Coronary Artery Disease, Hx Heart Attack, Hx Hypertension Pulmonary Medical History: Reports: Hx Asthma Denies: Hx Bronchitis, Hx COPD, Hx Pneumonia Neurological Medical History: Denies: Hx Cerebrovascular Accident, Hx Seizures Renal/ Medical History: Denies: Hx Peritoneal Dialysis GI Medical History: Reports: Hx Gastroesophageal Reflux Disease, Hx Hiatal Hernia Musculoskeletal Medical History: Denies Hx Arthritis Past Surgical History: Reports: Hx Orthopedic Surgery, Hx Testicular Surgery - [place] - Immunizations Hx Diphtheria, Pertussis, Tetanus Vaccination: Yes Review of Systems - Review of Systems Constitutional: Weakness. denies: Chills, Fever EENT: No symptoms reported Cardiovascular: denies: Chest pain, Palpitations Respiratory: denies: Short of breath Gastrointestinal: Abdominal pain, Constipation Genitourinary: No symptoms reported Male Genitourinary: No symptoms reported Musculoskeletal: No symptoms reported Skin: No symptoms reported Hematologic/Lymphatic: No symptoms reported Neurological/Psychological: No symptoms reported Physical Exam - Vital signs Vitals: Temp Pulse Resp BP Pulse Ox 99.1 F 95 16 170/66 H 96 10/12/18 10:43 10/12/18 10:43 10/12/18 10:43 10/12/18 10:43 10/12/18 10:43 - Notes Notes: PHYSICAL EXAMINATION: GENERAL: Well-appearing, well-nourished and in no acute distress. HEAD: Atraumatic, normocephalic. EYES: Pupils equal round and reactive to light, extraocular movements intact, sclera anicteric, conjunctiva are normal. ENT: Nares patent, oropharynx clear without exudates. Moist mucous membranes. NECK: Normal range of motion, supple without lymphadenopathy LUNGS: Breath sounds clear to auscultation bilaterally and equal. No wheezes rales or rhonchi. HEART: Regular rate and rhythm without murmurs ABDOMEN: Soft, nondistended abdomen. Tenderness to palpation to left lower, left upper and epigastric areas. No guarding, no rebound. No masses appreciated. Musculoskeletal: Normal range of motion, no pitting or edema. No cyanosis. NEUROLOGICAL: Cranial nerves grossly intact. Normal speech, normal gait. Normal sensory, motor exams PSYCH: Normal mood, normal affect. SKIN: Warm, Dry, normal turgor, no rashes or lesions noted. Course - Re-evaluation Re-evalutation: 10/12/18 12:40 Labs as recorded. X-ray shows splenomegaly which is new in comparison with most recent x-rays on file. I consulted with my attending physician who recommends obtaining a CT. Patient was reevaluated, states he is feeling much better after administration of IV fluids and medications. 10/12/18 15:53 CT abdomen pelvis shows splenomegaly with enlarged lymph nodes on the mediastinum. Oncology consult placed. Spoke with Dr. Brady who agrees to see patient as an outpatient. Patient continues to feel well, is asymptomatic states he is feeling improved. Discussed findings of CT with patient and the importance of following up with oncology. Patient verbalizes understanding and agreement with same. Patient appropriate for discharge. - Vital Signs Vital signs: Temp Pulse Resp BP Pulse Ox 98.0 F 81 16 137/57 H 99 10/12/18 16:25 10/12/18 16:25 10/12/18 16:25 10/12/18 16:25 10/12/18 16:25 - Laboratory Result Diagrams: 10/12/18 11:00 10/12/18 11:00 Laboratory results interpreted by me: 10/12/18 10/12/18 11:00 11:00 Hgb 10.2 L Hct 32.6 L MCV 64 L MCH 20.1 L MCHC 31.3 L RDW 16.9 H Seg Neuts % (Manual) 32 L Lymphocytes % (Manual) 63 H Abs Neuts (Manual) 1.5 L Sodium 136.9 L Glucose 119 H Discharge - Discharge Clinical Impression: Splenomegaly, Mediastinal lymph node enlargement Condition: Stable Disposition: HOME, SELF-CARE Additional Instructions: CT of the Abdomen showed an enlarged spleen which is new from your previous scan in 2018. There are also enlarged lymph nodes noted on the mediastinum. This needs further workup by an oncologist and it is possible that it is cancerous. I have already called Dr. Farias our oncologist here at [facility]. He would like you to call his office on Sunday to schedule an appointment. He has also made his office staff aware of you and the will reach out if they do not hear from you. Prescriptions: Dicyclomine HCl [Bentyl 20 mg Tablet] 20 mg PO QID PRN #30 tablet PRN Reason:
--- NOTE | 2018-10-12 13:05 | RADIOLOGY REPORT (SQ) ---
EXAM DESCRIPTION: KUB/ABDOMEN (SINGLE VIEW) COMPLETED DATE/TIME: 10/12/2018 12:53 pm REASON FOR STUDY: abd pain COMPARISON: CT abdomen pelvis 01/08/2018 NUMBER OF VIEWS: One view. TECHNIQUE: Supine radiographic image of the abdomen acquired. LIMITATIONS: None. FINDINGS: BOWEL GAS PATTERN: Normal bowel gas pattern. No dilated loops. CALCIFICATIONS: No suspicious calcifications. SOFT TISSUES: Splenomegaly, spleen measures almost 18 cm in greatest craniocaudad length. This new c ompared to 01/08/2018 CT abdomen and pelvis HARDWARE: None in the abdomen. BONES: No acute fracture. No worrisome bone lesions. OTHER: No other significant finding. IMPRESSION: Nonobstructive bowel gas pattern. Splenomegaly TECHNICAL DOCUMENTATION: JOB ID: [id number] [employer]- All Rights Reserved Reading location - IP/workstation name: [email or web address]
[2018-10-12] MEDS ORDERED: METOCLOPRAMIDE HCL INJ/PF 10 MG/2 ML SDV IV ONE (15:16)
[2018-10-12] MEDS ORDERED: DICYCLOMINE HCL 20 MG TABLET PO ONE (15:16)
--- NOTE | 2018-10-12 15:29 | RADIOLOGY REPORT (SQ) ---
EXAM DESCRIPTION: CT ABD/PELVIS WITH IV ONLY COMPLETED DATE/TIME: 10/12/2018 2:56 pm REASON FOR STUDY: abd pain COMPARISON: CT abdomen pelvis 01/08/2018 Abdominal films 10/12/2018 TECHNIQUE: CT scan of the abdomen and pelvis performed using helical scanning technique with dynamic intravenous contrast injection. No oral contrast. Images reviewed with lung, soft tissue, and bone windows. Reconstructed coronal and sagittal MPR images reviewed. Delayed images for evaluation of the urinary system also acquired. All images stored on PACS. All CT scanners at this facility use dose modulation, iterative reconstruction, and/or weight based d osing when appropriate to reduce radiation dose to as low as reasonably achievable (ALARA). [facility]: Dose Right [facility]: CareDose [facility]: Dose Right [facility]: Teradose 4D [facility]: Nitro CONTRAST TYPE AND DOSE: contrast/concentration: Isovue 350.00 mg/ml; Total Contrast Delivered: 100.0 ml; Total Saline Delivered: 72.0 ml RENAL FUNCTION: None required. The patient is less than 50 years old. RADIATION DOSE: CT Rad equipment meets quality standard of care and radiation dose reduction techniq ues were employed. CTDIvol: 6.1 - 8.7 mGy. DLP: 737 mGy-cm.. LIMITATIONS: None. FINDINGS: LOWER CHEST: Large retrocardiac hiatal hernia containing the stomach fundus. Lower thorac ic lymph node in the posterior mediastinum adjacent to the distal esophagus, 1.7 x 1.3 cm in size inc ompletely included in the field of view. LIVER: Normal size. No masses. No dilated ducts. SPLEEN: Splenomegaly, 15 to 16 cm in greatest length. This is new compared to 01/08/2018. PANCREAS: No masses. No significant calcifications. No adjacent inflammation or peripancreatic fluid collections. Pancreatic duct not dilated. GALLBLADDER: No identified stones by CT criteria. No inflammatory changes to suggest cholecystitis. ADRENAL GLANDS: No significant masses or asymmetry. RIGHT KIDNEY AND URETER: No solid masses. No significant calcifications. No hydronephrosis or hyd roureter. LEFT KIDNEY AND URETER: No solid masses. No significant calcifications. No hydronephrosis or hydr oureter. AORTA AND VESSELS: No aneurysm. No dissection. Renal arteries, SMA, celiac without stenosis. RETROPERITONEUM: 1.7 x 1 cm celiac lymph node axial image 19. BOWEL AND PERITONEAL CAVITY: No masses or inflammatory changes. No free fluid or peritoneal masses. APPENDIX: Normal. PELVIS: No mass. No free fluid. Normal bladder. ABDOMINAL WALL: No masses. No hernias. BONES: No significant or acute findings. OTHER: No other significant finding. IMPRESSION: Splenomegaly, new compared to 01/08/2018. Enlarged lymph nodes lower mediastinum, and along the celiac region TECHNICAL DOCUMENTATION: JOB ID: [id number] Quality ID # [id number]: Final reports with documentation of one or more dose reduction techniques (e.g., Au tomated exposure control, adjustment of the mA and/or kV according to patient size, use of iterative reconstruction technique) 2010 [employer]- All Rights Reserved Reading location - IP/workstation name: [email or web address]
[2018-10-12 16:57] VITALS: BP 137/57
== END 2018-10-12 16:25 | disposition home or self-care (01) ==
LOC: ER 10:32
DX: R16.1 Splenomegaly, not elsewhere classified (principal); R59.0 Localized enlarged lymph nodes; R10.9 Unspecified abdominal pain; Z88.0 Allergy status to penicillin
CPT/HCPCS: 99284; 96361; 96374; 36415; 83690; 85025; 80053; 74018; 74177; J3490; S0164; J7120

== ENCOUNTER 2018-10-16 07:40 | Day surgery (SDC) | payer MEDICAID ==
[2018-10-16] MEDS ORDERED: PROPOFOL INJ 200 MG/20 ML VIAL IV ONE (09:08)
[2018-10-16] MEDS ORDERED: ACETAMINOPHEN 325 MG TABLET PO PRN (09:53)
[2018-10-16] MEDS ORDERED: SIMETHICONE 80 MG TAB.CHEW PO PRN (09:53)
[2018-10-16] MEDS ORDERED: PROMETHAZINE HCL INJ 25 MG/1 ML VIAL INJ PRN (09:54)
--- NOTE | 2018-10-16 11:48 | Operative Report ---
Operative Report DATE OF SURGERY: 10/16/18 Operative Report: The risks benefits and alternatives of the procedure explained to the patient in detail and informed consent is obtained.A GIF Olympus video scope was inserted into the patient's mouth and hypopharynx, the esophagus is identified intubated and insufflated, the scope was then advanced through the esophagus stomach and duodenum, retroflexion maneuver is done, the esophagus stomach and first and second portions of the duodenum examined. PREOPERATIVE DIAGNOSIS: Abdominal pain rule out peptic ulcer disease POSTOPERATIVE DIAGNOSIS: Esophagitis versus De La O's status post biopsy. Gastritis status post biopsy rule out Helicobacter pylori OPERATION: EGD with biopsy SURGEON: TASHA AGEE ANESTHESIA: LMAC TISSUE REMOVED OR ALTERED: As noted above. COMPLICATIONS: None. ESTIMATED BLOOD LOSS: None. INTRAOPERATIVE FINDINGS: As noted above. PROCEDURE: Patient tolerated the procedure well. No immediate postprocedure complications are noted. Patient discharged in good condition. Discharge date 10/16/2018. Discharge diet: Regular. Discharge activity: Regular. 2-3-week follow-up to discuss findings. Patient is instructed to call the office or proceed to the emergency room should there be any concerns or questions. Wait on the pathology.
[2018-10-16 11:53] VITALS: BP 122/71
== END 2018-10-16 10:30 | disposition home or self-care (01) ==
LOC: OROUT 07:40
PROVIDERS: ATTEND Internal Medicine Gastroenterology
DX: K29.50 Unspecified chronic gastritis without bleeding (principal); K20.9 Esophagitis, unspecified; K21.9 Gastro-esophageal reflux disease without esophagitis; D64.9 Anemia, unspecified; J45.909 Unspecified asthma, uncomplicated; Z88.0 Allergy status to penicillin; Z85.47 Personal history of malignant neoplasm of testis; Z79.51 Long term (current) use of inhaled steroids
CPT/HCPCS: 43239; 88342 ×2; 88305 ×2; J2704; 731

== ENCOUNTER → 2018-10-27 | Outpatient (CLI) | payer MEDICAID ==
--- NOTE | 2018-10-28 09:39 | RADIOLOGY REPORT (SQ) ---
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 RADIONUCLIDE AND DOSE: 12.4 mCi F18 FDG The route of agent administration: Intravenous FASTING BLOOD SUGAR: 85 mg/dl CONTRAST TYPE AND DOSE: No CT contrast given. TECHNIQUE: Blood glucose level was verified. Above dose of FDG was injected intravenously. 2-D seg mented attenuation correction images were obtained from the base of the skull to the midthighs. Nonc ontrast CT images were obtained for attenuation correction and fusion with emission images. CT image s were performed without oral or intravenous contrast and are not sensitive for parenchymal lesions. A series of overlapping emission PET images were obtained. Images reviewed and manipulated at [facility]note 2[place] work station by the radiologist. Images stored on PACS. LIMITATIONS: None. FINDINGS: HEAD AND NECK: Fairly symmetric bilateral tonsillar enlargement with SUV 9.3. Bilateral hypermetabolic level 2 nodes, largest left of midline image 19, 1.6 x 0.8 cm 5.1 SUV. Hype rmetabolic right level 4 node image 43, 0.6 x 1.3 cm 4.2 SUV. CHEST: Image 96, hypermetabolic right cardiophrenic node 3.3 SUV measuring about 1.5 x 1.5 cm. This was present in retrospect CTA chest 01/08/2018 and is not significantly changed in size. ABDOMEN AND PELVIS: No areas of abnormal metabolic activity in the abdomen or pelvis. Expected physi ologic activity is present in the genitourinary system and bowel. PROXIMAL LOWER EXTREMITIES: No areas of abnormal metabolic activity in the soft tissues of the lower extremities. BONES: No abnormal metabolic activity in the visualized skeleton. ADDITIONAL CT FINDINGS: Large hiatal hernia. OTHER: Blood pool activity 1.6 SUV, liver 2.2 SUV. IMPRESSION: 1. Hypermetabolic cervical nodes and tonsillar tissue, most likely reactive. 2. Mildly hypermetabolic cardiophrenic node, unchanged morphologically since December 2017. 3. No abdominal or retroperitoneal adenopathy. TECHNICAL DOCUMENTATION: JOB ID: [id number]- All Rights Reserved Reading location - IP/workstation name: [email or web address]
== END ==
LOC: RAD 18:17
PROVIDERS: ATTEND Internal Medicine
DX: C62.12 Malignant neoplasm of descended left testis (principal); K44.9 Diaphragmatic hernia without obstruction or gangrene
CPT/HCPCS: 78815; A9552

== ENCOUNTER 2018-11-12 09:21 | Day surgery (SDC) | payer MEDICAID ==
[2018-11-12] MEDS: MIDAZOLAM 2 MG/2 ML INJ ONE ×2 (09:48→09:50)
[2018-11-12] MEDS: FENTANYL CITRATE INJ/PF 100 MCG/2 ML AMPUL ONE ×2 (09:52→09:58)
--- NOTE | 2018-11-12 10:24 | Operative Report ---
Nonrecallable Operative Report DATE OF SURGERY: 11/12/18 PREOPERATIVE DIAGNOSIS: gerd POSTOPERATIVE DIAGNOSIS: gerd OPERATION: esophagogastroduodenoscopy. esphageal biopsy. rojas ph study placement. SURGEON: NETTA MCNAIR ANESTHESIA: Moderate Sedation TISSUE REMOVED OR ALTERED: esophageal biopsy COMPLICATIONS: none ESTIMATED BLOOD LOSS: 0 INTRAOPERATIVE FINDINGS: mild esophagitis. z-line at 34cm. rojas placed at 28cm PROCEDURE: see dictation
--- NOTE | 2018-11-12 10:26 | Discharge Summary ---
Discharge Summary (SDC) - Discharge Final Diagnosis: gerd Date of Surgery: 11/12/18 Condition: Good Referrals: NETTA MCNAIR MD [ACTIVE STAFF] - 11/20/18 9:45 am Discharge Diet: As Tolerated Discharge Activity: Activity As Tolerated Report the Following to Your Physician Immediately: Increase in Pain - do not resume your antacids for 48hrs., Unusual Bleeding, Large Clots
--- NOTE | 2018-11-12 11:23 | OPERATIVE REPORT E ---
Operative Report NAME: IRINA JONES : 1980 AGE: 38Y DATE OF SURGERY: 11/12/2018 ROOM: PREOPERATIVE DIAGNOSIS: Gastroesophageal reflux disease. POSTOPERATIVE DIAGNOSIS: Gastroesophageal reflux disease. OPERATION: Esophagogastroduodenoscopy with Rojas pH monitor replacement and esophageal biopsy. SURGEON: NETTA MCNAIR M.D. PROCEDURE: The patient was brought to the endoscopy suite in awake, alert, and stable condition and given IV sedation using fentanyl and Versed. After appropriate timeout he was then placed in a left lateral decubitus position. The Olympus gastroscope was then placed into the posterior pharynx after anesthetizing the posterior pharynx with Hurricane spray. The scope was then passed through the upper esophageal sphincters into the proximal esophagus and then passed down through the esophagus into the stomach and the stomach was visualized. The antrum appeared to be normal as well as the body and cardia of the stomach. There was a small hiatal hernia. The scope was then passed past the angularis into the antrum and then into the duodenum through the pylorus. The duodenum appeared to be normal. As the scope was slowly withdrawn, we retroflexed the scope and examined the proximal stomach in the GE junction and there again was noted a small hiatal hernia. We then pulled the scope back through the GE junction and noted that the distal esophagus had some distal esophagitis and an area at the distal esophagus was biopsied x2 to rule out De La O's esophagus. The scope was then withdrawn. We then used the Rojas catheter and passed it into the posterior pharynx as patient swallowed. We placed it at 28 cm from the teeth. Previously, we had measured the Z-line at 34 cm from the teeth, so this was 6 cm above the Z-line. We applied suction to the Rojas catheter and allowed the appropriate amount of time to pass and we fired the rojas capsule. We removed the catheter. We then re-scoped the patient with the Olympus gastroscope, passed it through the mouth and past the posterior pharynx to approximately 22 cm where we identified the Rojas capsule that was adherent to the esophagus. We then removed the scope. We confirmed good placement with a pH reading of 7.01 on the Rojas transducer. The patient was then placed in a supine position and returned to recovery in stable condition. ESTIMATED BLOOD LOSS: Negligible. TISSUE SENT TO PATHOLOGY: Esophageal biopsy at the Z-line. DICTATING PHYSICIAN: NETTA MCNAIR M.D. [id number] Y#: [id number] ID: [id number] JOB#: [id number] ACCT: [id number] cc:NETTA MCNAIR M.D. >
[2018-11-12 11:44] VITALS: BP 120/59
== END 2018-11-12 11:25 | disposition home or self-care (01) ==
LOC: END 09:21
PROVIDERS: ATTEND Surgery
DX: K21.0 Gastro-esophageal reflux disease with esophagitis (principal); K44.9 Diaphragmatic hernia without obstruction or gangrene; J45.909 Unspecified asthma, uncomplicated; D64.9 Anemia, unspecified; Z88.0 Allergy status to penicillin; Z79.51 Long term (current) use of inhaled steroids; Z79.899 Other long term (current) drug therapy; Z01.818 Encounter for other preprocedural examination
CPT/HCPCS: 43239; 91035; 88305 ×2; 88312 ×2; J2250; J3010; J0171; J1200; J1610; J2310; J2405; J3490

== ENCOUNTER 2019-03-27 00:07 | Emergency (ER) | payer MEDICAID ==
[2019-03-27] MEDS ORDERED: PREDNISONE 20 MG TABLET PO ONE (03:22)
--- NOTE | 2019-03-27 03:26 | ER Document Report ---
ED General - General Chief Complaint: Allergic Reaction Stated Complaint: POSSIBLE ALLERGIC REACTION Time Seen by Provider: 03/27/19 03:15 Notes: Patient is a pleasant 38-year-old male who presents with complaint of ant bites on his right hand and arm have close his hand and arm to swell. He also had a bite on his back and as well as one on his left knee. Said he reached into an area and when he pulled his hand out there is covered in the hands. He denies any other complaints this time. No fevers. No systemic symptoms. Does have a history of asthma but denies any difficulty breathing or wheezing. TRAVEL OUTSIDE OF THE [place] IN LAST 30 DAYS: No - Related Data Allergies/Adverse Reactions: Penicillins Allergy (Unknown, Verified 11/12/18 09:11) Anaphylaxis Past Medical History - Social History Smoking Status: Never Smoker Frequency of alcohol use: None Drug Abuse: None Family History: Reviewed & Not Pertinent - Past Medical History Cardiac Medical History: Denies: Hx Coronary Artery Disease, Hx Heart Attack, Hx Hypertension Pulmonary Medical History: Reports: Hx Asthma Denies: Hx Bronchitis, Hx COPD, Hx Pneumonia Neurological Medical History: Denies: Hx Cerebrovascular Accident, Hx Seizures Renal/ Medical History: Denies: Hx Peritoneal Dialysis GI Medical History: Reports: Hx Gastroesophageal Reflux Disease, Hx Hiatal Hernia Musculoskeletal Medical History: Denies Hx Arthritis Past Surgical History: Reports: Hx Orthopedic Surgery, Hx Testicular Surgery - [place] - Immunizations Hx Diphtheria, Pertussis, Tetanus Vaccination: Yes Review of Systems - Review of Systems Notes: My Normal Review Basic REVIEW OF SYSTEMS: CONSTITUTIONAL : Denies fever, chills, or sweats. Denies recent illness. RESPIRATORY: Denies cough, cold, or chest congestion. Denies shortness of breath, difficulty breathing, or wheezing. GASTROINTESTINAL: Denies abdominal pain. Denies nausea, vomiting, or diarrhea. MUSCULOSKELETAL: Swelling to right hand and arm. SKIN: Ant bites on right hand. NEUROLOGICAL: Denies sensory or motor loss. ALL OTHER SYSTEMS REVIEWED AND NEGATIVE. Physical Exam - Vital signs Vitals: Temp Pulse Resp BP Pulse Ox 97.7 F 91 18 149/87 H 97 03/27/19 00:12 03/27/19 00:12 03/27/19 00:12 03/27/19 00:12 03/27/19 00:12 - Notes Notes: General Appearance: Well nourished, alert, cooperative, no acute distress, no obvious discomfort. Ill-appearing Vitals: reviewed, See vital signs table. Head: no swelling or tenderness to the head Eyes: PERRL, EOMI, Conjuctiva clear Mouth: No decreasd moisture Lungs: No wheezing, No rales, No rhonci, No accessory muscle use, good air e xchange bilaterally. Extremities: strength 5/5 in all extremities, good pulses in all extremities, she has several bumps on the right hand consistent with ant bites. The dorsum of the right hand itself is swollen nasal with swelling going into the forearm with some bites in the forearm as well. He has good range of motion of the hand. Good movement of the fingers. Patient's left upper extremity is unaffected. He has one bite in the left knee with just some localized swelling. One aunt bite on the lower back with localized swelling. No abnormal redness. No abnormal warmth. Bites do not appear infected. Skin: warm, dry, appropriate color, no rash Neuro: speech clear, oriented x 3, normal affect, responds appropriately to questions. Course - Re-evaluation Re-evalutation: 03/27/19 03:[address] patient prednisone due to his bites and the reaction to them. I encouraged him to return to ER if there is any signs of infection such as increasing swelling, spreading redness, fevers, or if he has any further concerns. Patient has no oropharyngeal involvement. No swelling of his tongue or lips. No difficulty breathing. His lung cade are clear. Patient agrees with plan and will be discharged home. Dictation of this chart was performed using voice recognition software; therefore, there may be some unintended grammatical errors. - Vital Signs Vital signs: Temp Pulse Resp BP Pulse Ox 98.6 F 78 18 135/73 H 99 03/27/19 03:20 03/27/19 03:20 03/27/19 03:20 03/27/19 03:20 03/27/19 03:20 Discharge - Discharge Clinical Impression: Allergy to ant bite Condition: Good Disposition: HOME, SELF-CARE Additional Instructions: I prescribed you a medication called prednisone. This is a steroid that will help reduce the amount of swelling you have on your hand and arm. Please take the steroids as prescribed. You can take Benadryl at home for itching. Please return to the ER if you have any redness to your hand or arm or swelling or fevers. Please return to ER if you have difficulty breathing or wheezing or any tongue swelling or lip swelling. Prescriptions: Prednisone [Deltasone 10 mg Tablet] 10 mg PO ASDIR PRN #27 tablet PRN Reason: Forms: Return to Work
[2019-03-27 04:22] VITALS: BP 138/85
== END 2019-03-27 03:57 | disposition home or self-care (01) ==
LOC: ER 00:07
DX: T78.40XA Allergy, unspecified, initial encounter (principal); X58.XXXA Exposure to other specified factors, initial encounter
CPT/HCPCS: 99283; J7512

== ENCOUNTER 2019-07-20 16:42 | Emergency (ER) | payer MEDICAID, OTHER ==
[2019-07-20 16:47] VITALS: BP 167/84
--- NOTE | 2019-07-20 17:07 | ER Document Report ---
ED Hand/Wrist Injury - General Chief Complaint: Hand Injury Stated Complaint: LEFT HAND INJURY Time Seen by Provider: 07/20/19 16:56 Mode of Arrival: Ambulatory Information source: Patient Notes: 38-year-old male presents to ED for complaint of an infection to the left wrist. He states he went to the urgent care about a week ago with a rash that had a little small pustules to the left wrist he thought it might be poison baltazar or poison oak. He states he put him on Valtrex, triamcinolone, and Bactroban. He states now it is red and dry and scaly most of the areas have cleared up but there is some redness to the left wrist still. There are no pustules there are some scaly areas. He is afebrile vital signs are stable at this time. He states he went back over to the urgent care and they stated that he might need a CT for his arm. There is no obvious reasons for a CT at this time. TRAVEL OUTSIDE OF THE [place] IN LAST 30 DAYS: No - HPI Injury to: Wrist Onset: Last week Timing: Still present Quality of pain: Achy Severity: Mild Pain Level: 1 - Related Data Allergies/Adverse Reactions: Penicillins Allergy (Unknown, Verified 07/20/19 16:57) Anaphylaxis Past Medical History - General Information source: Patient - Social History Smoking Status: Never Smoker Cigarette use (# per day): No Chew tobacco use (# tins/day): No Smoking Education Provided: No Frequency of alcohol use: None Drug Abuse: None Occupation: [employer] Lives with: Family Family History: Reviewed & Not Pertinent Patient has suicidal ideation: No Patient has homicidal ideation: No - Medical History Medical History: Other - Anemia iron deficiency - Past Medical History Cardiac Medical History: Reports: None Pulmonary Medical History: Reports: Hx Asthma EENT Medical History: Reports: None Neurological Medical History: Reports: None Renal/ Medical History: Reports: None Malignancy Medical History: Reports Hx Testicular Cancer GI Medical History: Reports: Hx Gastroesophageal Reflux Disease, Hx Hiatal Hernia Musculoskeletal Medical History: Reports Hx Musculoskeletal Trauma Skin Medical History: Reports Hx Cellulitis Psychiatric Medical History: Reports: None Traumatic Medical History: Reports: None Infectious Medical History: Reports: None Past Surgical History: Reports: Hx Orthopedic Surgery - Knee surgery torn ACL, Hx Testicular Surgery - [place] testicle removed - Immunizations Immunizations up to date: No Hx Diphtheria, Pertussis, Tetanus Vaccination: No Review of Systems - Review of Systems Constitutional: No symptoms reported EENT: No symptoms reported Cardiovascular: No symptoms reported Respiratory: No symptoms reported Gastrointestinal: No symptoms reported Genitourinary: No symptoms reported Male Genitourinary: No symptoms reported Musculoskeletal: No symptoms reported Skin: Other - Scaly rash with redness surrounding the area Hematologic/Lymphatic: No symptoms reported Neurological/Psychological: No symptoms reported Physical Exam - Vital signs Vitals: Temp Pulse Resp BP Pulse Ox 98.3 F 99 16 167/84 H 97 07/20/19 16:46 07/20/19 16:46 07/20/19 16:46 07/20/19 16:46 07/20/19 16:46 Interpretation: Normal - General General appearance: Appears well, Alert - HEENT Head: Normocephalic, Atraumatic Eyes: Normal Pupils: PERRL - Respiratory Respiratory status: No respiratory distress Chest status: Nontender Breath sounds: Normal Chest palpation: Normal - Cardiovascular Rhythm: Regular Heart sounds: Normal auscultation Murmur: No - Abdominal Inspection: Normal Distension: No distension Bowel sounds: Normal Tenderness: Nontender Organomegaly: No organomegaly - Back Back: Normal, Nontender - Extremities General upper extremity: Normal inspection, Nontender, Normal color, Normal ROM, Normal temperature General lower extremity: Normal inspection, Nontender, Normal color, Normal ROM, Normal temperature, Normal weight bearing. No: Rajendra's sign - Neurological Neuro grossly intact: Yes Cognition: Normal Orientation: AAOx4 Roslyn Coma Scale Eye Opening: Spontaneous Roslyn Coma Scale Verbal: Oriented Roslyn Coma Scale Motor: Obeys Commands Roslyn Coma Scale Total: 15 Speech: Normal Motor strength normal: LUE, RUE, LLE, RLE Sensory: Normal - Psychological Associated symptoms: Normal affect, Normal mood - Skin Skin Temperature: Warm Skin Moisture: Dry Skin Color: Normal Location of irregularity: Extremities - Left wrist Course - Vital Signs Vital signs: Temp Pulse Resp BP Pulse Ox 98.3 F 99 16 167/84 H 97 07/20/19 16:46 07/20/19 16:46 07/20/19 16:46 07/20/19 16:46 07/20/19 16:46 Discharge - Discharge Clinical Impression: Cellulitis of left wrist Condition: Stable Disposition: HOME, SELF-CARE Additional Instructions: CELLULITIS: You have an infection of your skin and underlying soft tissues called cellulitis. This is due to bacteria, which can enter through any break in the skin, or even through an irritated hair follicle. Untreated, cellulitis will usually worsen. Antibiotics are required. Usually, warm packs or warm soaks, and elevation of the infected area are recommended. You should start getting better within 24 to 36 hours. Most infections respond quickly to the right medication. Follow-up care is important, however, to check for abscess (boil) formation, unsuspected foreign body, or resistant infection. If you develop fever, chills, or if the area of infection is becoming rapidly more swollen or painful, call the doctor at once. Soap Cleansing Gently wash the wound daily using a mild soap (like Ivory, Phisoderm, Neutrogena). Use warm water, rubbing gently until all debris, ooze, and crusting have been washed from the wound. Allow to dry briefly (about 10 minutes) after cleaning. Repeat this cleansing at least three times a day for the first two days and then once or twice a day. DOXYCYCLINE: Doxycycline (Vibramycin, Doryx) is an antibiotic of the tetracycline family. This type of drug is useful for infections of the respiratory tract and genital tract, and is sometimes used for intestinal infections. Unlike most tetracyclines, doxycycline can be taken with food. It is longer acting, and (usually) less prone to side effects than regular tetracycline. Tetracycline antibiotics can stain immature teeth and SHOULD NOT BE TAKEN BY CHILDREN, NURSING MOTHERS, OR WOMEN. Tetracyclines can make you more prone to sunburn. Abdominal cramping, nausea, and diarrhea are occasional side effects. Women may experience vaginal yeast infections. Call the doctor at once if you develop hives, itching, shortness of breath, or lightheadedness. Bactroban Ointment Bactroban is very effective against the germs that cause infection within t he skin. It's useful for impetigo and other superficial infections. Deeper infections require antibiotics by mouth or by shot. Apply the medicine three times a day for one week, or longer if your doctor has advised it. Stop the medicine and call your doctor if you develop large blisters, severe itching, increasing pain, swelling, fever, or spreading redness. We have marked the outline of the infection on your arm. If your infection the redness or pain goes outside of this line return to the ED for further treatment. FOLLOW-UP CARE: If you have been referred to a physician for follow-up care, call the physicians office for an appointment as you were instructed or within the next two days. If you experience worsening or a significant change in your symptoms, notify the physician immediately or return to the Emergency Department at any time for re-evaluation. Prescriptions: Mupirocin [Bactroban 2% Ointment 22 gm] 22 applic TP TID #1 tube Doxycycline Hyclate 100 mg PO BID #14 capsule Forms: Elevated Blood Pressure
== END 2019-07-20 17:37 | disposition home or self-care (01) ==
LOC: ER 16:42
DX: L03.114 Cellulitis of left upper limb (principal); J45.909 Unspecified asthma, uncomplicated; Z85.47 Personal history of malignant neoplasm of testis; Z87.892 Personal history of anaphylaxis; Z88.0 Allergy status to penicillin
CPT/HCPCS: 99283